=== PATIENT | female | born 1950 | race Caucasian/White ===

== ENCOUNTER 2017-04-04 16:20 | Emergency (ER) | payer OTHER ==
[~2017-04-04] VITALS: Ht 162.6 cm; Wt 97.1 kg
[~2017-04-04 16:20] MED LIST: ARTIFICIAL TEAR1 OI1 OS; ARTIFICIAL TEAR15 M2 OPH; ARTIFICIAL TEAR15 ML OP; BIOTIN5000 MCG PO; ERYTHROMYCIN5 MG/GM OPH; PREDNISONE 10MG10 M1 PO; SAME200 MG PO; VALACYCLOVIR1 GM PO; VALTREX1 GM PO; ZITHROMAX Z-PA250 M1 PO; ZOFRAN ODT4 M1 SL
[2017-04-04 16:27] VITALS: BP 137/86
--- NOTE | 2017-04-04 17:10 | ED INFLUENZA/URI COMPLAINT ---
History of Present Illness General Chief Complaint: General Adult Stated Complaint: CONGESTED,WEAK Source: patient Exam Limitations: no limitations Vital Signs & Intake/Output Vital Signs & Intake/Output Vital Signs Date Time Temp Pulse Resp B/P B/P Pulse O2 O2 Flow FiO2 Mean Ox Delivery Rate 04/04 1753 Room Air 04/04 1753 98.8 78 18 99 Room Air 04/04 1627 97.9 92 18 137/86 97 Room Air Room Air Allergies Coded Allergies: tetracycline (Mild, NAUSEA 06/13/15) Reconcile Medications Biotin 5,000 MCG TAB.RAPDIS 1 TAB PO DAILY SUPPLEMENT (Reported) Guaifenesin/Dextromethorphan (Cough & Chest Congest Dm Liq) 100 MG-5 MG/5 ML LIQUID 5-10 ML PO QHS PRN cough Guaifenesin/Dextromethorphan (Adult Robitussin Peak Cold Liq) 100 MG-10 MG/5 ML LIQUID 10 ML PO QHS PRN cough Methylprednisolone. (Medrol) 4 MG TAB.DS.PK 1 DP PO AD bronchitis 6 on day 1 then reduce by one tablet daily until gone Methylprednisolone. (Medrol) 4 MG TAB.DS.PK 1 DP PO AD bronchitis 6 on day 1 then reduce by one tablet daily until gone Ondansetron (Zofran Odt) 4 MG TAB.RAPDIS 1 TAB SL TID PRN nausea S-Adenosylmethionine Sul Tosyl (SAME) 200 MG TABLET.DR 2 TAB PO DAILY SUPPLEMENT (Reported) Triage Note: TRIAGE: 66 Y/O FEMALE PRESENTS C/O COUGH AND CONGESTION SINCE Thursday03/30/2017. CONTINUES TO COUGH, BECOMING TIRED. HAS BEEN SELF-MEDICATING WITH COUGH SUPPRESSANTS AND EXPECTORANTS. Triage Nurses Notes Reviewed? yes Onset: Gradual Duration: day(s): Timing: recent history Severity: moderate HPI: 66yo female presents to ED complaining of cough, congestion, rhinorrhea, fatigue x 6 days. Patient states symptoms are persistent despite rest. She has tried OTC medications including robatussin however has had no relief of her symptoms. The patient denies fevers, chills, sick contact, chest pain, dyspnea, abdominal pain , nausea, vomiting, diarrhea. (Christiana VINSON,Debbie Nicole) Past History Travel History Traveled to [place] past 21 day No Medical History Any Pertinent Medical History? see below for history Neurological: Mott's palsy EENT: NONE Cardiovascular: NONE Respiratory: NONE Gastrointestinal: NONE Hepatic: NONE Renal: NONE Musculoskeletal: NONE Psychiatric: NONE Endocrine: NONE Blood Disorders: NONE Cancer(s): NONE Surgical History Surgical History: none Psychosocial History What is your primary language Mexican Tobacco Use: Never used ETOH Use: denies use Illicit Drug Use: denies illicit drug use Family History Hx Contributory? No (Debbie Cole) Review of Systems Review of Systems Constitutional: Reports: see HPI. EENTM: Reports: see HPI. Respiratory: Reports: see HPI. Cardiovascular: Reports: no symptoms. GI: Reports: no symptoms. Genitourinary: Reports: no symptoms. Musculoskeletal: Reports: no symptoms. Skin: Reports: no symptoms. Neurological/Psychological: Reports: no symptoms. Hematologic/Endocrine: Reports: no symptoms. Immunologic/Allergic: Reports: no symptoms. All Other Systems: Reviewed and Negative (Debbie Cole) Physical Exam Physical Exam General Appearance: well developed/nourished, no apparent distress, alert, awake Head: atraumatic, normal appearance Eyes: Bilateral: normal appearance, PERRL, EOMI. Ears, Nose, Throat: normal ENT inspection, moist mucous membrane, hearing grossly normal, Tympanic normal Neck: normal inspection, supple, full range of motion Respiratory: normal breath sounds, no respiratory distress, lungs clear Cardiovascular: regular rate/rhythm Gastrointestinal: normal bowel sounds, soft, non-tender, no organomegaly Back: normal inspection, normal range of motion Extremities: normal inspection, normal range of motion Neurologic/Psych: awake, alert, oriented x 3 Skin: intact, normal color, warm/dry Core Measures Sepsis Present: No Sepsis Focused Exam Completed? No (Debbie Cole) Progress Differential Diagnosis: influenza, otitis, pneumonia, sinusitis, viral URI Plan of Care: Orders Procedure Date/time Status RAPID VIRAL INFLUENZA A 04/04 1628 Complete Microbiology 04/04 1631 NASOPHARYN: Influenza Virus A & B Rapid Smear - COMP Patient offered CXR however declines at this time. Physical exam is benign. Likely viral URI. Patient instructed to begin steroid course for likely acute bronchitis. She was given cough suppressant medication and educated on over-the -counter medications for symptomatically relief. Low suspicion for bacterial infection based on patient's physical exam and vital signs. She is in no acute distress, nontoxic appearing. She will follow-up with her primary care doctor. The patient agrees with the plan of care. Initial ED EKG: none (Christiana VINSON,Debbie Nicole) Departure Departure Disposition: HOME OR SELF CARE Condition: Stable Clinical Impression Primary Impression: Bronchitis Secondary Impressions: Cough, Nasal congestion Referrals: Amadeo TELLEZ,Michael Downs (PCP/Family) Additional Instructions: Begin Steroid pack tomorrow morning, take full steroid pack. Take nighttime cough syrup to aid in sleeping, if this dose makes you too groggy you may take a lower dose the following night. Continue DayQuil or Robitussin during the day to help with your daytime symptoms. Increase your fluids and rest. You have a fever take Tylenol or ibuprofen. Return to the emergency Department with any worsening symptoms or other concerns. Please note that there might be incidental findings in your evaluation that are unrelated to the current emergency department visit. Please notify your primary care doctor about this emergency department visit in order to obtain and review all of the testing performed so that these incidental findings can be monitored as needed. If you had an x-ray performed, please understand that some fractures may not be seen on the initial set of x-rays. If your symptoms persist you might need a repeat set of x-rays to check for such a fracture. If you had a laceration evaluated, please understand that foreign bodies such as glass or wood may not be visible to the naked eye or on plain x-rays. If the wound becomes red, swollen, increasingly more painful or if there is any drainage from the wound, please have it reevaluated by a physician for the possibility of a retained foreign body. If you're unable to follow up as outlined in the discharge instructions please return to the emergency department. Thank you for choosing the [facility] Emergency Department for your care. It was a pleasure to serve you today. Departure Forms: Customer Survey General Discharge Information Prescriptions: Current Visit Scripts Methylprednisolone. (Medrol) 1 DP PO AD #1 DP 6 on day 1 then reduce by one tablet daily until gone Guaifenesin/Dextromethorphan (Cough & Chest Congest Dm Liq) 5-10 ML PO QHS PRN cough #200 ML Guaifenesin/Dextromethorphan (Adult Robitussin Peak Cold Liq) 10 ML PO QHS PRN cough #210 ML Methylprednisolone. (Medrol) 1 DP PO AD #1 DP 6 on day 1 then reduce by one tablet daily until gone (Christiana VINSON,Debbie Nicole) PA/PATCHING MACHINE OPERATOR Co-Sign Statement Statement: ED Attending supervision documentation- x I saw and evaluated the patient. I have also reviewed all the pertinent lab results and diagnostic results. I agree with the findings and the plan of care as documented in the PA's/PATCHING MACHINE OPERATOR's documentation. [] I have reviewed the ED Record and agree with the PA's/PATCHING MACHINE OPERATOR's documentation. [] Additions or exceptions (if any) to the PAs/PATCHING MACHINE OPERATOR's note and plan are summarized below: [] (Kareen THOMSON,Teto)
[2017-04-04] MEDS ORDERED: COUGH & CHEST177 ML PO (17:43)
[2017-04-04] MEDS ORDERED: MEDROL4 M2 PO ×2 (17:43→19:07)
[2017-04-04] MEDS ORDERED: ADULT ROBITUSS118 ML PO (19:07)
== END 2017-04-04 17:55 ==
LOC: ERH 16:20
DX: J40 Bronchitis, not specified as acute or chronic (principal); R09.81 Nasal congestion
CPT/HCPCS: 87804; 87804-59

== ENCOUNTER 2017-12-03 14:50 | Emergency (ER) | payer OTHER, MEDICARE ==
[~2017-12-03] VITALS: Ht 162.6 cm; Wt 99.8 kg
[~2017-12-03 14:50] MED LIST changes: +ADULT ROBITUSS118 ML PO; +COUGH & CHEST177 ML PO; +MEDROL4 M2 PO
[2017-12-03 14:55] VITALS: BP 173/86
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
--- NOTE | 2017-12-03 16:08 | RADIOLOGY REPORT ---
EXAMINATION: XR LUMBOSACRAL SPINE CLINICAL INFORMATION: Back pain COMPARISON: CT abdomen pelvis 12/06/2016 TECHNIQUE: AP. Lateral. Cone-down AP lateral lumbosacral junction view FINDINGS: There is no fracture or bone destruction. Vertebrae have normal height and alignment. There is degenerative spondylosis of spine with marked disc height narrowing including vacuum disc phenomenon, vertebral endplate spurring and facet joint arthrosis. Degenerative changes of the spine are similar to the CAT scan of 12/06/2016. There is a large volume of stool in the colon. There is no abnormally dilated bowel loop. IMPRESSION: 1. No acute abnormality. 2. Degenerative spondylosis of the lumbar spine.
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
[2017-12-03] MEDS ORDERED: CYCLOBENZAPRINE5 M2 PO (16:33)
== END 2017-12-03 16:46 ==
LOC: ERH 14:50
DX: S09.90XA Unspecified injury of head, initial encounter (principal); M54.2 Cervicalgia; M54.5 Low back pain; M54.6 Pain in thoracic spine; R51 Headache; R11.0 Nausea; V89.2XXA Person injured in unspecified motor-vehicle accident, traffic, initial encounter
CPT/HCPCS: 71046; 72070; 72110